=== PATIENT | male | born 1990 | race Two or more races ===

== ENCOUNTER 2024-11-17 11:06 | Emergency (ER) | payer MEDICAID, SELFPAY ==
[2024-11-17 11:21] VITALS: BP 136/89; PULSE 115; RESP 18; TEMP 37.6; O2SAT 98; BMI 28.9
--- NOTE | 2024-11-17 11:31 | XR_ITS ---
Examination: Ribs, right, with PA chest, 5 views Technique: Chest PA, RIBS AP, RPO, LPO, AP coned lower ribs 5 views Exam date and time: November 17, 2024 1158 hours INDICATIONS: Patient fell yesterday with injury to the right chest, right rib pain Findings: Normal heart size No pneumothorax Subtle pleural thickening along the lateral thoracic wall No acute rib fractures IMPRESSION: No pneumothorax pulmonary contusion or hemothorax No acute rib fractures
[2024-11-17] MEDS: ONDANSETRON ODT 4 MG TABRAP PO (11:35)
--- NOTE | 2024-11-17 11:35 | XR_ITS ---
Examination: Abdomen sonogram, Limited Date and time of exam: November 17, 2024 at 1236 hours INDICATIONS: Epigastric pain nausea vomiting beginning 2 days ago Technique: Real-time gonsalez scale transabdominal sonographic images of the upper abdomen obtained. Findings: Normal gallbladder Normal common bile duct 0.4 cm Pancreatic head 3.2 cm Liver 15.4 cm fatty infiltration Normal hepatopedal portal venous flow Patent IVC IMPRESSION: Normal gallbladder Fatty liver
--- NOTE | 2024-11-17 11:38 | EDNOTE_ITS ---
ED Abdominal Pain RME/HPI General Chief Complaint: Abdominal Pain Stated complaint: CAN'T EAT AFTER FALLING/SLIDING OFF LADDER ; ABD Time seen by provider: 11/17/24 11:20 Arrival date/time: 11/17/24 11:06 34-year-old male with no significant past medical history presents to the emergency department complaining of epigastric pain and right rib pain. Patient does report had a fall yesterday when he was taking a ladder off of his truck which caused him to slip and fell on top of a metal bar injuring his right rib. Patient reports pain worsened throughout the night and then developed nausea and vomiting which caused him to come to the emergency department for evaluation. Patient denies any fevers or chills. Source: patient Mode of arrival: ambulatory Limitations: no limitations Related Data Previous Rx's ?Medication ?Instructions ?Recorded etodolac 400 mg tablet 400 mg PO BID PRN pain #30 t abs 12/11/19 methocarbamol 750 mg tablet 750 mg PO Q8H PRN pain #30 tabs 12/11/19 (Robaxin-750) meclizine 25 mg tablet 25 mg PO BID PRN dizziness # 20 tabs 12/06/21 tobramycin 0.3 % eye drops 1 drp ophthalmic (eye) Q4H #5 mL 07/17/22 acetaminophen 500 mg capsule 500 mg PO Q6H PRN pain #3 0 caps 11/17/24 ibuprofen 600 mg tablet 600 mg PO Q8H PRN pain #20 t abs 11/17/24 Allergies Allergy/AdvReac Type Severity Reaction Status Date / Time No Known Allergies Allergy Verified 11/17/24 11:14 Review of Systems Review of Systems Systems Reviewed: All systems reviewed, normal except as documented Constitutional Constitutional: Reports system reviewed and no additional complaints, except as documented, Denies body ache(s), Denies chills and Denies fever(s) Eyes Eyes: Reports system reviewed and no additional complaints, except as documented and Denies change in vision ENT Ears, Nose, Mouth, and Throat: Reports system reviewed and no additional complaints, except as documented, Denies disequilibrium, Denies dizziness, Denies sore throat and Denies vertigo Cardiovascular Cardiovascular: Reports system reviewed and no additional complaints, except as documented, Denies chest pain and Denies dyspnea Respiratory Respiratory: Reports system reviewed and no additional complaints, except as documented, Denies chest congestion, Denies cough and Denies dyspnea Gastrointestinal Gastrointestinal: Reports system reviewed and no additional complaints, except as documented, Reports abdominal pain, Reports nausea and Reports vomiting Musculoskeletal Musculoskeletal: Reports system reviewed and no additional complaints, except as documented, Denies abnormal gait, Denies arthralgias and Reports other (Right rib pain) Integumentary/Breasts Skin/Breast: Reports system reviewed and no additional complaints, except as documented, Denies erythema, Denies rash and Denies wounds Neurologic Neurologic: Reports system reviewed and no additional complaints, except as documented, Denies abnormal gait, Denies disequilibrium, Denies dizziness and Denies vertigo Past Medical History Social History SMOKING STATUS: Never smoker ED Exam General Limitations: Present no limitations General appearance: Present alert and in no apparent distress Head Head exam: Present atraumatic Eye Eye exam: Present normal appearance, PERRL and EOMI ENT ENT exam: Present normal exam, normal oropharynx and mucous membranes moist Neck Neck exam: Present normal inspection, full ROM and trachea midline Chest Chest inspection: Present normal inspection and symmetric chest wall rise Respiratory Respiratory exam: Present normal lung sounds bilaterally Cardiovascular Cardiovascular exam: Present regular rate, normal rhythm and normal heart sounds Abdominal Exam Abdominal exam: Present soft, tenderness, normal bowel sounds and Gomez's sign Extremities Exam Extremities exam: Present normal inspection and full ROM Back Exam Back exam: Present normal inspection and full ROM Neurological Exam Neurological exam: Present alert, oriented X3 and CN II-XII intact Psychiatric Psychiatric exam: Present normal affect and normal mood Skin Skin exam: Present warm, dry, intact and normal color Course Quality Measures none Orders Category Date Time Status US gall bladder Stat Exams 11/17/24 11:35 Completed XR ribs RT min 3V w CXR1V Stat Exams 11/17/24 11:31 Completed CBC Stat Lab 11/17/24 11:38 Completed CMP [Comprehensive Metabolic Panel] Stat Lab 11/17/24 11:38 Completed Lipase Stat Lab 11/17/24 11:38 Completed Ketorolac Inj [Toradol Inj] Med 11/17/24 11:36 Discontinued 30 mg IM X1 ONE Ondansetron Odt [Zofran Odt] Med 11/17/24 11:31 Discontinued 4 mg PO X1 ONE Vital Signs Vital signs: Vital Signs Temperature 99.7 F 11/17/24 11:21 Pulse Rate 115 H 11/17/24 11:21 Respiratory Rate 18 03/05/25 11:21 Blood Pressure 136/89 H 11/17/24 11:21 Pulse Oximetry (%) 98 11/17/24 11:21 Oxygen Delivery Method Room Air 11/17/24 11:21 98% room air within normal limits Abdominal Pain MDM MDM Narrative MDM Narrative:: 34-year-old male with no significant past medical history presents to the emergency department complaining of epigastric pain and right rib pain. Patient does report had a fall yesterday when he was taking a ladder off of his truck which caused him to slip and fell on top of a metal bar injuring his right rib. Patient reports pain worsened throughout the night and then developed nausea and vomiting which caused him to come to the emergency department for evaluation. Patient denies any fevers or chills. Patient reports is a daily drinker. Patient GCS of 15 with steady gait. CBC mild leukocytosis 12.6. CMP unremarkable other than elevated total bili 1.4, AST 83, ALT 114. Patient has history of elevated liver enzymes. Ultrasound gallbladder was unremarkable. Elevated liver enzymes likely from patient alcohol intake or fatty liver that was shown on ultrasound. Rib x-ray was unremarkable for any acute fractures. Patient stable for discharge. Patient data External records reviewed:: [facility] previous records Clinical information provided by:: patient Social determinants that could affect healthcare access:: none Patient has the following chronic illnesses:: None How is presenting disease/condition affected by chronic disease/condition?: no chronic disease Evaluation data The following diagnostics were reviewed and interpreted by me:: lab results and radiology exam(s) Lab and/or radiology exams considered but not ordered:: Ordered Interpretation Summary: Interpreted by me Medications / Prescriptions Medications or Prescriptions considered but not ordered:: Ordered Medication administrations:: Medication Administration History Discontinued Medications Ketorolac Tromethamine (Ketorolac Inj 60 Mg/2 Ml Vial) 30 mg IM X1 ONE Stop: 11/17/24 11:37 Last Admin: 11/17/24 11:49 Dose: 30 mg Documented By: OA Ondansetron HCl (Ondansetron Odt 4 Mg Tabrap) 4 mg PO X1 ONE; Protocol Stop: 11/17/24 11:32 Last Admin: 11/17/24 11:35 Dose: 4 mg Documented By: OA Given Consultations Consultation(s) initiated? (list below): No Diagnosis Differential diagnosis abdominal pain: abdominal pain, acute appendicitis, calculus of kidney, constipation, diverticulitis, endometriosis, gastroenteritis, pancreatitis, small bowel obstruction and other (Rib fracture) Most likely diagnosis given after review of the tests above:: Abdominal pain Admission Indicated Admission indicated?: not indicated Admission Request Was there a request for admission?: No Disposition Plan Disposition Plan: Discharge Discharge Attestation Discharge Attestation: The patient and all family members were given an opportunity to ask questions and understood the discharge instructions. Discharge instructions specifically effects, indications for sooner follow up or return to the emergency department, and the expected course of current diagnosis. Patient condition: Stable Discharge Plan Plan Patient Disposition: HOME (Self Care) Disposition Comment: Stable Prescriptions/Referrals Prescriptions/Med Rec: New ibuprofen 600 mg tablet 600 mg PO Q8H PRN (Reason: pain) Qty: 20 0RF acetaminophen 500 mg capsule 500 mg PO Q6H PRN (Reason: pain) Qty: 30 0RF No Action methocarbamol [Robaxin-750] 750 mg tablet 750 mg PO Q8H PRN (Reason: pain) Qty: 30 0RF etodolac 400 mg tablet 400 mg PO BID PRN (Reason: pain) Qty: 30 0RF meclizine 25 mg tablet 25 mg PO BID PRN (Reason: dizziness) Qty: 20 0RF tobramycin 0.3 % drops 1 drp ophthalmic (eye) Q4H Qty: 5 0RF Referrals: No Primary/Family,Physician [Primary Care Provider] - In 1 week Problem List Clinical Impression: Abdominal pain Patient/Caregiver Discharge Instructions Discharge Activity: activity as tolerated Education Materials: Abdominal Pain Additional Instructions: Attempt to cut back on alcohol intake as tolerated. No fractures were seen in your x-ray of your rib. Take Tylenol or ibuprofen as needed for pain. Follow-up with primary care provider within 1 week and request have liver enzymes repeated. Return to emergency department for any worsening symptoms or as needed. Print Language: Scottish Stand Alone Forms: [facility] Award Info., Patient Portal Info Letter PA/VP SITE Supervising Physician PA/VP SITE Supervising Physician: Dr. Garcia
[2024-11-17] MEDS: KETOROLAC INJ 60 MG/2 ML VIAL 30 MG IM (11:49)
[2024-11-17 11:56] LABS: Basophils % (Auto) 0 % (0-2.5); Eosinophils % (Auto) 0 % (0-10); Hemoglobin 15.2 g/dL (13.5-16.0); Immature Granulocytes % (Auto) 0 % (0-0); Immature Granulocytes Auto 0.04 Thou/mm3 (0.00-0.00); Lymphocytes # (Auto) 1.5 Thou/mm3 (1.0-4.8); Lymphocytes % (Auto) 12 % (10-50); Mean Corpuscular HGB Conc 35.3 g/dl (31.0-37.0); Mean Corpuscular Volume 85 fL (80-100); Monocytes % (Auto) 8 % (0-12); Neutrophils % (Auto) 80 % (37-80); Nucleated Red Blood Cell % 0 /100 WBC (0); Platelet Count 291 Thou/mm3 (140-440); Red Blood Count 5.07 Miln/mm3 (4.50-5.90); White Blood Count 12.6 Thou/mm3 (3.8-10.6)
[2024-11-17 12:13] LABS: Alanine Aminotransferase 114 U/L (10-49); Albumin, Serum 5.1 gm/dL (3.5-5.0); Albumin/Globulin Ratio 1.7 (1.2-2.2); Alkaline Phosphatase 91 U/L (46-116); Anion Gap 11 (7-16); Aspartate Amino Transferase 83 U/L (0-34); BUN/Creatinine Ratio 19 Ratio (12-20); Bilirubin,Total 1.4 mg/dL (0.3-1.2); Blood Urea Nitrogen 17 mg/dL (9-23); Calcium 9.9 mg/dL (8.3-10.6); Calcium (Corrected) 9.9 mg/dL (8.5-10.1); Carbon Dioxide 24.3 mMol/L (20.0-31.0); Chloride 102 mMol/L (98-107); Creatinine (Component) 0.9 mg/dL (0.6-1.3); Estimated Creatinine Clearance 127.6 mL/min (>60); Glucose 160 mg/dL (74-106); Lipase 46 U/L (12-53); Osmolality,Calculated 278 (275-295); Potassium 3.5 mMol/L (3.4-5.1); Sodium 137 mMol/L (136-145); Total Protein 8.1 gm/dL (5.7-8.2); eGFR > 60 See Note
[2024-11-17 15:27] VITALS: BP 152/98; PULSE 90; RESP 16; TEMP 37.2; O2SAT 100
== END 2024-11-17 17:44 | disposition home or self-care (01) ==
PROVIDERS: Nurse Practitioner Family; Emergency Provider Emergency Medicine
DX: R10.13 Epigastric pain (principal)
CPT/HCPCS: 36415; 71101; 76705; 80053; 83690; 85025; 96372; 99284; J1885; Q0162